=== PATIENT | female | born 2000 | race Caucasian/White ===

== ENCOUNTER 2023-08-08 08:53 | Outpatient (AMB) | payer OTHER, SELFPAY ==
--- NOTE | 2023-08-08 10:17 | AM.OFFWIN_ITS ---
Intake Vital Signs 08/08/23 10:19 Height 5 ft Weight 189 lb BMI 36.9 BP 116/80 Blood Pressure Location Lt brachial Position Sitting Pulse 81 Pulse Source Pulse Oximeter Temp 97.8 F Temp Source Temporal Artery Scan Pulse Oximetry (%) 99 Oxygen Delivery Method Room Air Intake Visit Reasons: [employer]SE [employer], right side of rib pain Intake Note: pt is here today for rt side of rib pain started Patient Tobacco Use Status: Never used Tobacco Is last menstrual period known: Yes Patient : No Allergies No Known Allergies Allergy (Verified 08/08/23 11:01) Medication List - Last Reconciled 08/08/23 by Jack Cordova MD No Known Home Meds Do you need a note to return to daycare/school/sports/work: Yes HPI HOUSE [employer]PENTER, right side of rib pain HPI Details 23-year-old female presents to [facility] for a sick visit. Reason for visit shows right side rib pain. However when I went in, patient is complaining of symptoms of burning urination and increased frequency of urination. Symptoms present for the past few days. No fevers or chills. She started taking azo yesterday. PFSH Social History Patient Tobacco Use Status: Never used Tobacco Patient : No Physical Exam Vital Signs: Last Vital Signs Temp 97.8 F 08/08/23 10:19 Pulse 81 08/08/23 10:19 BP 116/80 08/08/23 10:19 Pulse Ox 99 08/08/23 10:19 Oxygen Delivery Method Room Air 08/08/23 10:19 BMI result Body Mass Index 36.9 Const General: cooperative and healthy appearing Nutritional Appearance: well nourished Orientation/consciousness: patient oriented x3 Limitations: no limitations HEENT Head: Yes normal to inspection Eyes General: appearance normal, both eyes and all related structures Neck Neck: Yes normal visual inspection Chest Chest palpation & inspection: normal palpation of entire chest wall Resp Effort & Inspection: normal respiratory effort Neuro General: patient oriented x3 Results AMB Urinalysis, Automated UA Leukoctes 500 Gema/uL Last Edit by Flaquito Knott CMA on 08/08/23 11:1 1 UA Nitrite Positive Last Edit by Flaquito Knott CMA on 08/08/23 11:11 UA Urobilinogen 4 mg/dL Last Edit by Flaquito Knott CMA on 08/08/23 11:1 1 UA Protein 100 mg/dL Last Edit by Flaquito Knott CMA on 08/08/23 11:11 UA pH 5.5 Last Edit by Flaquito Knott CMA on 08/08/23 11:11 UA Blood 200 [place]ibio/uL Last Edit by Flaquito Knott CMA on 08/08/23 11:11 UA Specific [place] 1.020 Last Edit by Flaquito Knott CMA on 08/08/23 11:11 UA Ketone Positive Last Edit by Flaquito Knott CMA on 08/08/23 11:11 UA Bilirubin 4 mg/dL Last Edit by Flaquito Knott CMA on 08/08/23 11:11 UA Glucose 100 mg/dL Last Edit by Flaquito Knott CMA on 08/08/23 11:11 Assessment & Plan Assessment & Plan (1) Urinary tract infection: Code(s): N39.0 - Urinary tract infection, site not specified Plan: Antibiotic and Pyridium called in. Increase fluid intake. Urinalysis reviewed with patient's. Orders: Orders AMB Urinalysis Automated Today Z13.9 - Encounter for screening, unspecified Coding Level of Care Code New Pt Level 3 (34675) Diagnoses Urinary tract infection N39.0
[2023-08-08 10:19] VITALS: BP 116/80; PULSE 81; TEMP 36.6; O2SAT 99; BMI 36.9
== END 2023-08-08 11:21 | disposition home or self-care (01) ==
PROVIDERS: PCP Nurse Practitioner Pediatrics; Visit Provider Internal Medicine
DX: N39.0 Urinary tract infection, site not specified (principal); R39.15 Urgency of urination
CPT/HCPCS: 81003; 99203